=== PATIENT | female | born 1970 | race Caucasian/White ===

== ENCOUNTER 2020-05-19 10:15 | Outpatient (CLI) | payer MEDICAID, SELFPAY ==
--- NOTE | 2020-05-19 10:22 | XR_ITS ---
WS: [id number] RIGHT KNEE: 3 VIEW(S) TECHNIQUE: AP, oblique(s) and lateral. HISTORY: PAIN IN RIGHT KNEE COMPARISON: None available. No fracture or dislocation. Mild narrowing of the joint spaces and small marginal osteophytes. No osteochondral lesion. No joint effusion. No soft tissue abnormality. XR/XR knee RT 3V* [id number] IMPRESSION: Mild tricompartment osteoarthritis.
== END 2020-05-19 10:16 | disposition home or self-care (01) ==
LOC: RADWPI 10:18
PROVIDERS: Family Provider Family Medicine; PCP Family Medicine; Visit Provider Anesthesiology Pain Medicine
DX: M17.11 Unilateral primary osteoarthritis, right knee (principal)
CPT/HCPCS: 73562

== ENCOUNTER 2020-07-15 08:36 | Outpatient (CLI) | payer MEDICAID, SELFPAY ==
--- NOTE | 2020-07-15 08:47 | MM_ITS ---
WS: [id number] Bilateral screening digital mammogram, 07/15/2020 Clinical Data: SCREENING Comparison: 12/20/2017, 07/24/2007. Findings: The breast parenchymal pattern shows fat replacement. No spiculated masses or clustered calcification s are seen. There are no secondary signs of carcinoma. MM/[place] [id number] Impression: 1. Negative bilateral mammogram unchanged. 2. Recommend annual screening mammograms. BIRADS: 1-Negative FOLLOW UP: 1 Year Follow-up The CAD counter checker was used.
== END 2020-07-15 08:37 | disposition home or self-care (01) ==
LOC: RADSHAW 08:42
PROVIDERS: PCP Family Medicine; Visit Provider Family Medicine
DX: Z12.31 Encounter for screening mammogram for malignant neoplasm of breast (principal)
CPT/HCPCS: 77067

== ENCOUNTER → 2021-11-30 14:12 | Outpatient (BNVA) | payer MEDICAID, SELFPAY | PROVIDERS: PCP Family Medicine; Referring Provider Family Medicine; Visit Provider Obstetrics & Gynecology | DX: N95.0 Postmenopausal bleeding (principal) | CPT/HCPCS: 83001; 84146; 84443; 85027 ==

== ENCOUNTER → 2021-12-27 08:19 | Outpatient (BNVA) | payer MEDICAID, SELFPAY | PROVIDERS: PCP Family Medicine; Visit Provider Obstetrics & Gynecology | DX: Z01.818 Encounter for other preprocedural examination (principal); Z20.822 Contact with and (suspected) exposure to COVID-19; N95.0 Postmenopausal bleeding | CPT/HCPCS: 80053; 81000; 81025; 85025; 86850; 86900; 87635 ==

== ENCOUNTER → 2021-12-28 12:09 | Outpatient (BNVA) | payer MEDICAID, SELFPAY | PROVIDERS: PCP Family Medicine; Visit Provider Obstetrics & Gynecology | DX: Z01.818 Encounter for other preprocedural examination (principal); N95.0 Postmenopausal bleeding | CPT/HCPCS: 85025 ==

== ENCOUNTER 2021-12-29 08:32 | Day surgery (SDC) | payer MEDICAID, SELFPAY ==
[2021-12-27 12:09] VITALS: BMI 65.4
--- NOTE | 2021-12-27 16:12 | P.ANESASSM_ITS ---
Pre-Anesthetic Assessment Height/Weight: Height 1.65 m Weight 178.262 kg Preop Diagnosis: Post menopausal bleeding Operation Date: 12/29/21 07:10 Proposed Procedures p Hysteroscopy w/ Myosure 06513(Not Applicable) - George Rayo MD s Dilation And Curettage (D&C)(Not Applicable) - George Rayo MD Familial anesthetic complications: None Was Beta Mackenzie taken within 24 hours: N/A Was Clonidine taken within 24 hours: N/A Social No alcohol and No tobacco Exam alert, oriented x 3 and regular rate & rhythm Diminished breath sounds b/l Airway Submandibular: within normal limits Cervical ROM: within normal limits Mallampati: Class III Comments: Comments: missing teeth Pulmonary Exertional Dyspnea and Sleep Apnea (On CPAP) CV/HEM Hypertension METS = 4 due to SOB and pain Denies CAD None reported Hepatic None reported GI Gastroesophageal Reflux Disease (Well controlled ) Metabolic Morbid Obesity Denies DM Musc/skel Lower Back Pain and Osteoarthritis/DJD Neuropsych None reported Anesthetic Plan ASA status: 4 Anesthesia: Anesthesia Evaluation and General Other: We discussed risk and benefits of general anesthesia including PONV, sore throat (sometimes severe), corneal abrasion, positioning and peripheral nerve injuries, life threatening allergic reaction, post operative ICU admission requiring prolonged intubation, stroke, heart attack, , and rare incidences of recall. Patient consents to proceed with general anesthesia. Patient plans to bring CPAP on DOS. Risk of > 500 ml blood loss (7ml/kg in children): No Medications/Allergies Home Medications Medication Instructions Recorded Confirmed Last Taken Type citalopram 20 mg tablet 20 mg PO DAILY 10/02/20 12/27/21 Unknown History lisinopril 20 1 tab PO DAILY 10/02/20 12/27/21 Unknown History mg-hydrochlorothiazide 12.5 mg tablet loratadine 10 mg capsule 10 mg PO DAILY 10/02/20 12/27/21 Unknown History omeprazole 20 mg capsule,delayed 20 mg PO BID 10/02/20 12/27/21 Unknown History release prenat.vits,shweta,ozh-avgl-syjxf 1 tab PO DAILY 10/02/20 12/27/21 Unknown History tizanidine 4 mg capsule 4 mg PO BID 10/02/20 12/27/21 Unknown History pseudoephedrine-guaifenesin ER 60 1 tab PO BID 12/27/21 12/27/21 Unknown History mg-600 mg tablet,extend release 12hr (Mucinex D) Allergies Allergy/AdvReac Type Severity Reaction Status Date / Time No Known Allergies Allergy Verified 12/27/21 08:09 [facility] Anesthesia Family History Mother Clotting disorder Diabetes Heart disease Father Hypertension Grandmother Breast cancer paternal, age unknown Denies family history of Colon cancer Ovarian cancer Hyperlipidemia Anesthesia complication Bleeding disorder Uterine cancer Thyroid condition Stroke Social History Smoking and tobacco status: never smoked Alcohol intake: never Female Reproductive History Date of last menstrual period: 12/24/21 Data Anesthesia Cardiac Studies: No Data to Display
[2021-12-29] VITALS (8 sets, daily range): BP systolic 102–158; BP diastolic 55–80; PULSE 70–99; RESP 16–22; TEMP 36.4–37.1; O2SAT 94–100
--- NOTE | 2021-12-29 08:44 | W.PM.OPSUD ---
Surgery/Procedure H&P Update DATE OF PROCEDURE: December 29, 2021 DATE H&P PERFORMED: 12/27/21 H&P UPDATE INFORMATION: I have reviewed H&P completed within last 30 days, I have examined patient prior to procedure and No changes to prior documentation PREOP DIAGNOSIS: Postmenopausal bleeding PLANNED PROCEDURE: Operation Date: 12/29/21 10:10 Proposed Procedures p Hysteroscopy w/ Myosure 77105(Not Applicable) - George Rayo MD s Dilation And Curettage (D&C)(Not Applicable) - George Rayo MD
--- NOTE | 2021-12-29 08:49 | P.ANESUD_ITS ---
Pre-Anesthetic Update Pre-Anesthetic Assessment: Date of Surgery/Procedure: 12/29/21 Preop Prisca gnosis: Postmenopausal bleeding Proposed Procedure: Operation Date: 12/29/21 10:10 Proposed Procedures p Hysteroscopy w/ Myosure 43714(Not Applicable) - George Rayo MD s Dilation And Curettage (D&C)(Not Applicable) - George Rayo MD Any changes to Pre-Anesthetic Assessment?: No Vitals: Temperature 97.5 F L 12/29/21 08:44 Pulse Rate 82 12/29/21 08:44 Respiratory Rate 16 12/29/21 08:44 Blood Pressure 158/78 12/29/21 08:44 Blood Pressure Destini n 104 12/29/21 08:44 Pulse Oximetry 98 12/29/21 08:44 Oxygen Delivery Me thod 12/29/21 08:44 Exam: Pre-Anes Outpt Exam: alert, oriented x 3, clear to auscultation bilaterally and regular rate & rhythm Cardiac Studies: No Data to Display
[2021-12-29] MEDS: enoxaparin 30 mg/0.3 mL Syringe SUBCUT (09:38)
[2021-12-29] MEDS: sodium chloride 0.9% 500 ML IV (09:40)
[2021-12-29] MEDS: scopolamine 1.5 Patch 1 PATCH TRANSDERMA (09:41)
[2021-12-29] MEDS: sodium chloride 0.9% 1,000 ML 30 ML IV (09:49)
[2021-12-29] MEDS: ceFAZolin 1,000 mg SDV 1000 MG IVP (10:42)
--- NOTE | 2021-12-29 11:47 | SUR.PHASEI ---
1140 PT TO PACU 5 AWAKE ALERT X 3 VSS ABDOMEN SOFT, ABDIEL PAD D/I WITH MOD AMT DK RED DRAINAGE, BILAT SCDS ON. HOB AT 30 DEGREES, IV TO LT UPPER ARM #20 WITH NS 100M UP AT KVO RATE PER GRAVITY, ID BAND TO LT WRIST , PT ID'D WITH 2 IDENTIFIERS,
--- NOTE | 2021-12-29 11:49 | PM.OP ---
Operative Report Date of procedure: December 29, 2021 Pre-op diagnosis: Preop Diagnosis Postmenopausal bleeding Post-op diagnosis: Postmenopausal bleed Procedure done: Hysteroscopic and D&C with MyoSure Specimens removed/disposition: Endometrial curettings Surgeon: George Rayo MD Estimated blood loss (mL): 25 IV fluids (mL): 800 Brief History: Mrs. Bland 51-year-old female with postmenopausal bleeding. Procedure: After informed consent, the risks included but were not limited to bleeding, infection, injury to internal organs. The patient was counseled on a possible laparotomy and on the potential need for hysterectomy. The patient expressed understanding of the risks involved, all questions were answered, and the patient consented to the procedure. The patient was taken to the operating room where general anesthesia was administered. She was placed in the dorsal lithotomy position and prepped and draped in sterile fashion. A time out procedure was performed. The patient was examined under anesthesia and found to have a normal uterus with normal adnexa. A sterile weight speculum was placed in the vagina. The uterus was then gently sounded to 8 cm, and the cervix was dilated. The 0 degrees MyoSure hysteroscope was advanced gently to the uterine fundus while visualizing the monitor. Survey of the uterine cavity showed: Proliferative endometrium, the fundus shows normal proliferative endometrium; left ostium was visualized, and lateral wall with proliferative endometrium; right ostium visualized, and lateral wall with proliferative endometrium; anterior and posterior cool are with proliferative endometrium; endocervical canal is normal. The MyoSure device was advanced and the direct visualization the endometrium was morcellated without complication. At the end of morcellation the fluid deficit was 580 mL and was estimated at approximately 400 mL were on the floor. There was minimal bleeding noted and the tenaculum removed with goad hemostasis noted. The patient tolerated the procedure well. The patient was taken to the recovery area in stable condition. Related Problem List Diagnoses (1) Postmenopausal bleeding:
--- NOTE | 2021-12-29 17:42 | ANE.PACU2 ---
Inpatient post-anesthesia follow up: Airway intact: Yes Vital signs: Temperature 98.4 F Pulse Rate 70 Respiratory Rate 16 Blood Pressure 120/66 Pulse Oximetry 99 Oxygen Delivery Me thod Room Air Oxygen Flow Rate 8 Fraction of Inspir ed Oxygen Hydration adequate: Yes Nausea and vomiting: No Pain level: 5 Mental status: Baseline
== END 2021-12-29 12:50 | disposition home or self-care (01) ==
PROVIDERS: PCP Family Medicine; Visit Provider Obstetrics & Gynecology
PROC: 0UDB8ZZ Extraction of Endometrium, Via Natural or Artificial Opening Endoscopic (ICD-10-PCS; CPT 58558; principal; 2021-12-29 10:00)
PROC: (CPT 58120; 2021-12-29 10:00)
DX: N95.0 Postmenopausal bleeding (principal); G47.30 Sleep apnea, unspecified; I10 Essential (primary) hypertension; K21.9 Gastro-esophageal reflux disease without esophagitis; E66.01 Morbid (severe) obesity due to excess calories; Z68.44 Body mass index [BMI] 60.0-69.9, adult; M19.90 Unspecified osteoarthritis, unspecified site; Z82.49 Family history of ischemic heart disease and other diseases of the circulatory system; Z80.3 Family history of malignant neoplasm of breast
CPT/HCPCS: 58558; 88305; J0690; J1650; J2405; J2704; J2710; J3010; J3490; J7030; J7040

== ENCOUNTER 2022-01-11 13:53 | Outpatient (CLI) | payer MEDICAID, SELFPAY ==
--- NOTE | 2022-01-11 14:03 | MM_ITS ---
WS: [id number] BILATERAL 3D TOMOSYNTHESIS DIGITAL SCREENING MAMMOGRAPHY WITH CAD CLINICAL INFORMATION: SCREENING HISTORY: Screening mammogram. No current complaints. COMPARISON: July 15, 2020 TECHNIQUE: Bilateral CC and MLO views. FINDINGS: Scattered fibroglandular densities bilaterally. Incidental intramammary lymph nodes RIGHT breast with fatty pancho. No suspicious focal mass, asymmetry, calcifications, or architectural distortion. No solange dence of malignancy. MM/[place] [id number] IMPRESSION: BI-RADS: 2-Benign FOLLOW UP: 1 Year Follow-up Recommend return to annual screening mammography.
== END 2022-01-11 13:54 | disposition home or self-care (01) ==
LOC: RADSHAW 13:54
PROVIDERS: PCP Family Medicine; Visit Provider Family Medicine
DX: Z12.31 Encounter for screening mammogram for malignant neoplasm of breast (principal)
CPT/HCPCS: 77063; 77067

== ENCOUNTER → 2022-03-11 10:07 | Outpatient (BNVA) | payer MEDICAID, SELFPAY | PROVIDERS: PCP Family Medicine; Visit Provider Obstetrics & Gynecology | DX: N95.0 Postmenopausal bleeding (principal); G89.29 Other chronic pain; R10.2 Pelvic and perineal pain; Z01.812 Encounter for preprocedural laboratory examination | CPT/HCPCS: 80053; 81000; 85025; 86850; 86900 ==

== ENCOUNTER 2022-03-16 09:02 | Observation (INO) | payer MEDICAID, SELFPAY ==
[2022-03-11 11:14] VITALS: BMI 64.7
--- NOTE | 2022-03-11 12:39 | P.ANESASSM_ITS ---
Pre-Anesthetic Assessment Height/Weight: Height 1.65 m Weight 176.447 kg Preop Diagnosis: Postmenopausal bleeding Operation Date: 03/16/22 07:00 Proposed Procedures p Total vaginal hysterectomy, bilateral salpingo-oophorectomy 92126,N93.9,R10.2,G89.29(Not Applicable) - George Rayo MD s Salpingo-Oophorectomy (Vaginal)(Bilateral) - George Rayo MD Familial anesthetic complications: None Social No alcohol and No tobacco Exam alert, oriented x 3, clear to auscultation bilaterally and regular rate & rhythm Airway Mallampati: Class II Dentition: other (missing) Pulmonary Asthma CV/HEM Hypertension None reported Hepatic None reported GI Gastroesophageal Reflux Disease Metabolic Thyroid Disease Musc/skel Lower Back Pain Neuropsych None reported Anesthetic Plan ASA status: 3 Anesthesia: General Risk of > 500 ml blood loss (7ml/kg in children): No Medications/Allergies Home Medications Medication Instructions Recorded Confirmed Last Taken Type citalopram 20 mg tablet 20 mg PO DAILY 10/02/20 03/11/22 12/28/21 History lisinopril 20 1 tab PO DAILY 10/02/20 03/11/22 12/28/21 History mg-hydrochlorothiazide 12.5 mg tablet loratadine 10 mg capsule 10 mg PO DAILY 10/02/20 03/11/22 12/28/21 History omeprazole 20 mg capsule,delayed 20 mg PO BID 10/02/20 03/11/22 12/28/21 History release prenat.vits,shweta,rwp-jrmn-ouuqp 1 tab PO DAILY 10/02/20 03/11/22 12/28/21 History tizanidine 4 mg capsule 4 mg PO BID 10/02/20 03/11/22 12/28/21 History pseudoephedrine-guaifenesin ER 60 1 tab PO BID 12/27/21 03/11/22 12/28/21 History mg-600 mg tablet,extend release 12hr (Mucinex D) acetaminophen 325 mg capsule 325 mg PO Q4H PRN #60 cap 12/29/21 03/11/22 Unknown Rx ibuprofen 800 mg tablet 800 mg PO TID PRN #60 tab 12/29/21 03/11/22 Unknown Rx hydrocodone 7.5 mg-acetaminophen 1 tab PO BID PRN 03/11/22 03/11/22 Unknown History 325 mg tablet Allergies Allergy/AdvReac Type Severity Reaction Status Date / Time shrimp Allergy Intermediate ALGY-Rash Verified 03/11/22 09:38 [facility] Anesthesia Medical History Aftercare following surgery of the genitourinary system Status post hysteroscopy 12/29/2021- hysteroscopic D&C with myosure performed by Dr. Rayo at [facility] Surgical History H/O dilation and curettage H/O tubal ligation S/P cholecystectomy Family History Mother Clotting disorder Diabetes Heart disease Father Hypertension Grandmother Breast cancer paternal, age unknown Denies family history of Colon cancer Ovarian cancer Hyperlipidemia Anesthesia complication Bleeding disorder Uterine cancer Thyroid condition Stroke Social History Smoking and tobacco status: never smoked Alcohol intake: never Female Reproductive History Date of last menstrual period: 12/24/21 Data Anesthesia Cardiac Studies: No Data to Display
[2022-03-16] VITALS (15 sets, daily range): BP systolic 90–129; BP diastolic 53–80; PULSE 72–85; RESP 12–19; TEMP 36.2–37.1; O2SAT 90–100; BMI 64.7
[2022-03-16] MEDS: scopolamine 1.5 Patch 1 PATCH TRANSDERMA (06:26)
[2022-03-16] MEDS: sodium chloride 0.9% 500 ML IV (06:30)
[2022-03-16] MEDS: enoxaparin 30 mg/0.3 mL Syringe SUBCUT (06:49)
--- NOTE | 2022-03-16 06:54 | W.PM.OPSUD ---
Surgery/Procedure H&P Update DATE OF PROCEDURE: March 16, 2022 DATE H&P PERFORMED: 03/11/22 H&P UPDATE INFORMATION: I have reviewed H&P completed within last 30 days, I have examined patient prior to procedure and No changes to prior documentation PREOP DIAGNOSIS: Postmenopausal bleeding PLANNED PROCEDURE: Operation Date: 03/16/22 07:00 Proposed Procedures p Total vaginal hysterectomy, bilateral salpingo-oophorectomy 07962,N93.9,R10.2,G89.29(Not Applicable) - George Rayo MD s Salpingo-Oophorectomy (Vaginal)(Bilateral) - George Rayo MD
[2022-03-16] MEDS: ceFOXitin 2,000 MG in sodium chloride 0.9% (plus) 50 ML 100 MG IV (07:00)
--- NOTE | 2022-03-16 07:48 | P.ANESUD_ITS ---
Pre-Anesthetic Update Pre-Anesthetic Assessment: Date of Surgery/Procedure: 03/16/22 Preop Prisca gnosis: Postmenopausal bleeding Proposed Procedure: Operation Date: 03/16/22 07:00 Proposed Procedures p Total vaginal hysterectomy, bilateral salpingo-oophorectomy 48040,N93.9,R10.2,G89.29(Not Applicable) - George Rayo MD s Salpingo-Oophorectomy (Vaginal)(Bilateral) - George Rayo MD Any changes to Pre-Anesthetic Assessment?: No Last Intake: Intake Last Liquid Date 03/15/22 Last Liquid Time 20:00 Last Solid Date 03/15/22 Last Solid Time 20:00 Vitals: Temperature 98.7 F 03/16/22 06:06 Temperature Source Temporal Artery S can 03/16/22 06:06 Pulse Rate 73 03/16/22 06:06 Respiratory Rate 18 03/16/22 06:06 Blood Pressure 129/63 03/16/22 06:06 Blood Pressure Destini n 85 03/16/22 06:06 Pulse Oximetry 98 03/16/22 06:06 Oxygen Delivery Me thod 03/16/22 06:38 Exam: Pre-Anes Outpt Exam: alert, oriented x 3, clear to auscultation bilaterally and regular rate & rhythm Cardiac Studies: No Data to Display
--- NOTE | 2022-03-16 08:58 | PM.OP ---
Operative Report Date of procedure: March 16, 2022 Pre-op diagnosis: Preop Diagnosis Postmenopausal bleeding Post-op diagnosis: Postmenopausal bleed Procedure done: Total vaginal hysterectomy with bilateral salpingo-oophorectomy Surgeon: George Rayo MD Estimated blood loss (mL): 400 IV fluids (mL): 700 Urine output (mL): 100 Complications: None Procedure: After informed consent and risks, benefits, indications and alternatives reviewed with the patient was taken to the operating room. The patient was placed in dorsal lithotomy position prepped, and draped in the usual sterile fashion. The pre-procedure timeout verifying the correct patient, procedure, site and side, could not requirements was performed and acknowledge by the OR team. A Chong catheter was placed. A Bookwalter vaginal retractor was placed into the vagina in usual manner visualize the cervix. Cervix was grasped with a single tooth tenaculum and circumferentially infiltrated with 2% lidocaine with epinephrine. Then cervix was circumferentially incised with bovie and the bladder was dissected off the pubovesical cervical fascia anteriorly with a sponge stick and Metzenbaum scissors. The anterior peritoneal reflection was identified and the anterior cul-de-sac was entered sharply with Metzenbaum scissors. The same procedure was performed posteriorly and a posterior colpotomy was made through the posterior cul-de-sac space without difficulty and the posterior blade of the Bookwalter vaginal retractor was advanced posteriorly into the cul-de-sac. At this time, the left and right uterosacral ligaments were isolated and ligated with 0 Vicryl. The Enseal device was placed over the uterosacral ligaments on either side and was then used in a serial fashion up through the cardinal ligaments bilaterally cross-clamped, cut, and sealed with the Enseal device. Finally, the uterine arteries were cross-clamped, cut, sealed and ligated with the Enseal device. Hemostasis was assured. The broad ligaments were then serially clamped, sealed and cut with the Enseal device on both sides. Excellent hemostasis was visualized. Both cornua were clamped, sealed and cut with the Enseal device. Then the pedicles were then suture ligated with excellent hemostasis. The uterus was excised and submitted for pathologic evaluation. No other abnormalities were noted in the pelvic cavity. Then the right side Infundibular ligament was identified. The ureter was confirmed along the pelvic side wall and peristalsis was noted. The Enseal device was then used to clamp, sealed and transcepted at middistance, again being sure to be clear of the ureter and the fallopian tube and ovary were removed. The same process was then repeated on the left side. Good hemostasis was assure on both sides. The peritoneum was then closed in a pursestring fashion with 0 Vicryl suture. The vaginal cuff angles were closed with [id number] #0 Vicryl suture on both sides and transfixed with the ipsilateral cardinal and uterosacral ligaments. The remainder of the vaginal cuff was closed with #0 Vicryl in a running locked fashion. At this time, instruments were removed from the vagina at hemostasis assured. Chong catheter was then noted yielding clear harish urine. The patient was taken out of dorsal lithotomy position and awakened from the general anesthesia. The patient tolerated the procedure well and was taken to the PACU recovery room in a stable condition. Sponge, lap, needle and instruments counts were correct x3.
[2022-03-16] MEDS: sodium chloride 0.9% 1,000 ML 30 ML IV (10:42)
[2022-03-16] MEDS: ketorolac 30 mg/mL INJ IVP ×2 (14:39→20:13)
--- NOTE | 2022-03-16 16:34 | ANE.PACU2 ---
Inpatient post-anesthesia follow up: Airway intact: Yes Vital signs: Temperature 97.5 F Pulse Rate 78 Respiratory Rate 18 Blood Pressure 103/66 Pulse Oximetry 96 Oxygen Delivery Me thod Room Air Oxygen Flow Rate 6 Fraction of Inspir ed Oxygen Hydration adequate: Yes Nausea and vomiting: No Pain level: 3 Mental status: Baseline
[2022-03-16] MEDS: docusate sodium 100 mg Capsule PO (17:45)
[2022-03-16] MEDS: HYDROcodone-acetaminophen 5-325 mg Tablet PO (17:46)
[2022-03-16] MEDS: pantoprazole DR 40 mg Tablet PO (18:16)
[2022-03-16] MEDS: dextrose 5%-lactated ringers 1,000 ML 125 ML IV (18:16)
[2022-03-17] MEDS: ketorolac 30 mg/mL INJ IVP (01:53)
[2022-03-17] MEDS: dextrose 5%-lactated ringers 1,000 ML 125 ML IV (01:56)
[2022-03-17 05:30] VITALS: BP 119/69; PULSE 70; RESP 18; TEMP 36.6; O2SAT 98
[2022-03-17 06:27] LABS: Hematocrit 34.2 % (37.0-47.0); Hemoglobin 11.1 g/dL (11.5-15.3); Mean Corpuscular HGB Conc 32.5 g/dL (30.0-36.0); Mean Corpuscular Hemoglobin 28.8 pg (28.0-34.0); Mean Corpuscular Volume 88.6 fl (81-99); Mean Platelet Volume 11.6 fL (7.4-10.4); Platelet Count 154 10^3/cmm (130-400); Red Blood Count 3.86 10^6/uL (4.1-5.3); Red Cell Distribution Width 13.6 % (12.1-15.1)
[2022-03-17 07:50] VITALS: BP 87/39; PULSE 73; RESP 20; TEMP 36.4; O2SAT 98
[2022-03-17] MEDS: prenatal vitamin Capsule 1 CAP PO (08:16)
[2022-03-17] MEDS: docusate sodium 100 mg Capsule PO (08:16)
[2022-03-17] MEDS: hydroCHLOROthiazide 25 mg Tablet 12.5 MG PO (08:16)
[2022-03-17] MEDS: lisinopril 20 mg Tablet PO (08:17)
[2022-03-17] MEDS: pantoprazole DR 40 mg Tablet PO (08:17)
[2022-03-17] MEDS: HYDROcodone-acetaminophen 5-325 mg Tablet PO (08:17)
[2022-03-17] MEDS: citalopram 20 mg Tablet PO (08:18)
[2022-03-17] MEDS: loratadine 10 mg Tablet PO (08:18)
--- NOTE | 2022-03-17 09:34 | P.DS_ITS ---
Discharge Providers ELECTRICAL CONTACTS ADJUSTER Date of Admission: 03/16/22 09:02 Date of Discharge: 03/17/22 Attending Provider at Admission: George Rayo MD Attending Provider at Discharge: George Rayo MD Primary Care Provider: Chavez Truong MD Reason for Visit Reason for Visit: Brief History: Mrs. Randhawa 51-year-old female with postmenopausal bleeding endometrial sampling with complex hyperplasia with atypia. Hospital Course Hospital Course Mrs. Randhawa was admitted for planned total vaginal hysterectomy with bilateral salpingo-oophorectomy. The procedures were performed without complications. Postop overnight observation uneventful. She is afebrile hemodynamically stable postoperative day 1. Tolerating diet well. Ambulating. Passing flatus. Physical Exam Narrative: GA: Alert and oriented ?3. HEENT: WNL. Heart: Regular rate and rhythm. Lungs: Clear to auscultation bilaterally. Abdomen: Bowel sounds present, nontender. ICT SALES REPRESENTATIVE: Scant spotting bleeding. Extremities: No edema, no cyanosis, no calves pain. Urinary Catheter Management: Chong: Cath Placed During This Visit: yes, but has since been removed by the nurse Reason for Continuing Indwelling Catheter: Decision to DC Catheter Urinary Catheter Date of Insertion: 03/16/22 Urinary Catheter Time of Insertion: 07:40 Date Urinary Catheter Removed: 03/17/22 Time Urinary Catheter Discontinued: 05:30 History History History 2 Term 2 Miscarriages/Ectopic 0 0 Living Children 1 Discharge Data Studies Completed and Pending Pending at discharge Category Date Time Status Pathology: Surgical [PTH] Routine Pth 03/16/22 09:13 Received Laboratory Results WBC 12.0 10^3/uL (4.0-10.0) H 03/17/22 06:21 RBC 3.86 10^6/uL (4.1-5.3) L 03/17/22 06:21 Hgb 11.1 g/dL (11.5-15.3) L 03/17/22 06:21 Hct 34.2 % (37.0-47.0) L 03/17/22 06:21 MCV 88.6 fl (81-99) 03/17/22 06:21 MCH 28.8 pg (28.0-34.0) 03/17/22 06:21 MCHC 32.5 g/dL (30.0-36.0) 03/17/22 06:21 RDW 13.6 % (12.1-15.1) 03/17/22 06:21 Plt Count 154 10^3/cmm (130-400) 03/17/22 06:21 MPV 11.6 fL (7.4-10.4) H 03/17/22 06:21 Vitals Last Vital Signs Temp 97.9 F 03/17/22 05:30 Pulse 70 03/17/22 05:30 Resp 18 03/17/22 05:30 BP 119/69 03/17/22 05:30 Pulse Ox 98 03/17/22 05:30 Discharge Plan Discharge Patient Disposition: Home Condition: Stable Prescriptions: New hydrocodone-acetaminophen 5-325 mg tablet 1 tab PO Q4H PRN (Reason: pain) Qty: 20 0RF ibuprofen 800 mg tablet 800 mg PO TID PRN (Reason: pain) Qty: 60 0RF acetaminophen 325 mg capsule 325 mg PO Q4H PRN (Reason: fever or pain) Qty: 60 0RF Continued lisinopril-hydrochlorothiazide 20-12.5 mg tablet 1 tab PO DAILY 0RF citalopram 20 mg tablet 20 mg PO DAILY 0RF omeprazole 20 mg capsule,delayed release(DR/EC) 20 mg PO BID 0RF loratadine 10 mg capsule 10 mg PO DAILY 0RF prenat.vits,shweta,iiy-wbag-jzcku Tablet 1 tab PO DAILY 0RF tizanidine 4 mg capsule 4 mg PO BID 0RF hydrocodone-acetaminophen 7.5-325 mg tablet 1 tab PO BID PRN (Reason: muscle spasms) 0RF pseudoephedrine-guaifenesin [Mucinex D] 60-600 mg Tablet Extended Release 12 Hr 1 tab PO BID 0RF ibuprofen 800 mg tablet 800 mg PO TID PRN (Reason: pain) Qty: 60 0RF acetaminophen 325 mg capsule 325 mg PO Q4H PRN (Reason: fever or pain) Qty: 60 0RF Discharge Orders: Discharge Order (Routine); Ordered 03/17/22 Ordered By: George Rayo Referrals: George Rayo MD [Physician] - 2 weeks Discharge Diet: Usual diet Discharge Activity: Limit activity as instructed Patient Instructions: Salpingo-Oophorectomy (GEN), Vaginal Hysterectomy (GEN), OB Discharge Report, OB Food/Drug Interaction Guide, Opioid Safety Activity Restrictions/Additional Instructions: 1. Please call [facility] on next working day to make your post-operative appointment in 2 weeks. 2. Please stay home until you come back to the clinic on first post-operative check up. 3. Please follow instructions on your medications CAREFULLY. 4. If you have abdominal incision, do not cover it unless dressing is necessary because of drainage. OK to shower, but avoid bath. Leave steri-strips until they fall off. If they are still on one week after surgery, you may remove them. 5. If you had vaginal surgery or vaginal repair, Dr. Rayo may instruct you to take SITZ bath. 6. Yellow, blood tinged odorous vaginal discharge is usually normal after hysterectomy or vaginal surgeries. 7. No sexual intercourse, tampons, or douches until you are completely released from the post-operative care. 8. Avoid constipation by eating right and maybe using some Metamucil or Milk of Magnesia. 9. All prescription refills are given during the working hours. Please do no wait till it runs out. Call the clinic at [phone] before your medication runs out. The clinic will get in touch with your doctor to prescribe medications if necessary. 10. Please remain within 40 mile radius from our hospital because emergencies do happen now and then during the post-operative period. 11. If you have stairs at home, take one step at a time slowly and minimize the number of trips. It helps to stay in one floor for the next few days. No lifting except what you can lift by one hand until you are released from the post-operative care. 12. Driving is discouraged until you are well healed. It may be 3-4 weeks before you feel strong enough to drive. You should be able to turn and look th rough the rear window without pain and you should be able to push the brake pedal very hard without pain before you drive. No fast rules, but SAFETY should be your primary concern. DO NOT drive if you are on sedating medications such as narcotics. 13. Call the clinic (during working hours) to make urgent appointment or go to the Emergency room, if any of the following occurs: i. Vaginal bleeding becomes heavy, more than a period. ii. Incision becomes red and sore, or drains pus. iii. Your temperature is over 100.4 or you have chill. iv. IV site becomes red and swollen (a little ``knot?? is usually OK) v. Persistent nausea and vomiting vi. Persistent constipation or diarrhea vii. Rash or allergic reaction to medications. Discharge Attestations ELECTRICAL CONTACTS ADJUSTER Time Spent in Discharge Care*: greater than 30 min Coding Level of Care Code Acute Residential Housekeeper for Mary Hunter
[2022-03-17 10:15] VITALS: BP 108/66; PULSE 70; RESP 18; TEMP 36.8; O2SAT 98
[2022-03-17 11:29] VITALS: BP 108/66; PULSE 70; RESP 18; TEMP 36.8; O2SAT 98
== END 2022-03-17 10:30 | disposition home or self-care (01) ==
LOC: OBGYN 09:05
PROVIDERS: Admitting Provider Obstetrics & Gynecology; PCP Family Medicine; Visit Provider Obstetrics & Gynecology
PROC: (CPT 58262; principal; 2022-03-16 07:00)
PROC: (CPT 58720; 2022-03-16 07:00)
DX: N95.0 Postmenopausal bleeding (principal); I10 Essential (primary) hypertension
CPT/HCPCS: 58262; 36415; 85027; 88307; G0378; J0330; J0694; J1100; J1200; J1650; J1885; J2250; J2270; J2370; J2405; J2704; J2710; J3010; J3490; J7030; J7040; Q9968

== ENCOUNTER → 2022-04-15 10:09 | Outpatient (BNVA) | payer MEDICAID, SELFPAY | PROVIDERS: PCP Family Medicine; Visit Provider Obstetrics & Gynecology | DX: R39.9 Unspecified symptoms and signs involving the genitourinary system (principal) | CPT/HCPCS: 81000; 87086 ==

== ENCOUNTER → 2022-04-26 10:15 | Outpatient (BNVA) | payer MEDICAID, SELFPAY | PROVIDERS: PCP Family Medicine; Visit Provider Obstetrics & Gynecology | DX: E89.40 Asymptomatic postprocedural ovarian failure (principal) | CPT/HCPCS: 83001 ==

== ENCOUNTER → 2022-06-06 10:35 | Outpatient (BNVA) | payer MEDICAID, SELFPAY | PROVIDERS: PCP Family Medicine; Visit Provider Obstetrics & Gynecology | DX: E66.9 Obesity, unspecified (principal) | CPT/HCPCS: 84443 ==

== ENCOUNTER 2023-01-20 08:00 | Outpatient (CLI) | payer MEDICAID, SELFPAY ==
--- NOTE | 2023-01-20 08:11 | MM_ITS ---
WS: [id number] Bilateral screening 3D tomosynthesis digital mammogram, 01/20/2023 Clinical Data: SCREENING Comparison: 01/11/2022, 07/15/2020, 12/20/2017, 07/28/2007. Findings: The breast parenchymal pattern shows fat replacement. No spiculated masses or clustered calcification s are seen. There are no secondary signs of carcinoma. MM/[place] [id number] Impression: 1. Negative bilateral mammogram unchanged. 2. Recommend annual screening mammograms. BIRADS: 1-Negative FOLLOW UP: 1 Year Follow-up The CAD bad cloth checker was used.
== END 2023-01-20 08:01 | disposition home or self-care (01) ==
PROVIDERS: PCP Family Medicine; Visit Provider Family Medicine
DX: Z12.31 Encounter for screening mammogram for malignant neoplasm of breast (principal)
CPT/HCPCS: 77063; 77067

== ENCOUNTER → 2023-07-13 07:37 | Outpatient (BNVA) | payer MEDICAID, SELFPAY | PROVIDERS: PCP Family Medicine; Referring Provider Obstetrics & Gynecology; Visit Provider Surgery | DX: R14.0 Abdominal distension (gaseous) (principal); K21.9 Gastro-esophageal reflux disease without esophagitis | CPT/HCPCS: 99203 ==

== ENCOUNTER 2023-08-16 06:48 | Day surgery (SDC) | payer MEDICAID, SELFPAY ==
[2023-08-16 07:09] VITALS: BP 145/67; PULSE 79; RESP 18; TEMP 36.6; O2SAT 93; BMI 64.9
[2023-08-16] MEDS: sodium chloride 0.9% 1,000 ML 30 ML IV (07:20)
--- NOTE | 2023-08-16 07:36 | ANES.PREANE2 ---
Pre-Anesthetic Assessment Height/Weight: Height 1.65 m Weight 176.901 kg Temp Pulse Resp BP Pulse Ox O2 Del Method 97.8 F 79 18 145/67 93 Room Air 08/16/23 07:09 08/16/23 07:09 08/16/23 07:09 08/16/23 07:09 08/16/23 07:09 08/16/23 07:09 Preop Diagnosis: Bloating/GERD Operation Date: 08/16/23 08:00 Proposed Procedures p EGD 92907,K21.9,R14.0(Not Applicable) - Tobi Calderon DO Familial anesthetic complications: None Was Beta Mackenzie taken within 24 hours: N/A Was Clonidine taken within 24 hours: N/A Last intake: Intake Last Liquid Date 08/15/23 Last Liquid Time 20:00 Last Solid Date 08/15/23 Last Solid Time 18:00 Social No alcohol and No tobacco Exam alert, oriented x 3, clear to auscultation bilaterally and regular rate & rhythm Airway Submandibular: within normal limits Cervical ROM: within normal limits Mallampati: Class II Dentition: full Comments: Comments: 5 teeth pulled 1.5 months ago History/ROS No significant history except as noted and No significant complaints Pulmonary Asthma, Exertional Dyspnea and Sleep Apnea (Doesn't wear CPAP) CV/HEM Hypertension None reported Hepatic None reported GI Gastroesophageal Reflux Disease Metabolic Morbid Obesity Musc/skel Lower Back Pain, Osteoarthritis/DJD and Weakness Neuropsych Anxiety, Depression, Headache and Neuropathy Anesthetic Plan ASA status: 3 Anesthesia: Anesthesia Evaluation, General and MAC Risk of > 500 ml blood loss (7ml/kg in children): No Medications/Allergies Home Medications Medication Instructions Recorded Confirmed Last Taken Type lisinopril 20 1 tab PO DAILY 10/02/20 08/14/23 08/15/23 History mg-hydrochlorothiazide 12.5 mg tablet loratadine 10 mg capsule 10 mg PO DAILY 10/02/20 08/14/23 08/15/23 History montelukast 10 mg tablet 10 mg PO DAILY 06/06/22 08/14/23 08/15/23 History (Singulair) citalopram 40 mg tablet 40 mg PO DAILY 05/28/23 08/14/23 08/15/23 History vitamin with calcium 1 tab PO DAILY 05/28/23 08/14/23 08/15/23 History no.72-iron 27 mg-folic acid 1 mg tablet ( Vitamins Plus Low Iron) estradiol 0.5 mg tablet See Rx Instructions .Route 06/12/23 08/14/23 08/15/23 Rx .COMPLEX #90 tabs oxybutynin chloride 5 mg See Rx Instructions .Route 06/12/23 08/14/23 08/15/23 Rx tablet,extended release 24 hr .COMPLEX #90 tabs pantoprazole 40 mg tablet,delayed 40 mg PO BID 6 weeks #84 tabs 07/13/23 08/14/23 08/15/23 Rx release (Protonix) Allergies Allergy/AdvReac Type Severity Reaction Status Date / Time shrimp Allergy Intermediate ALGY-Rash Verified 07/13/23 07:44 Current Medications Generic Name Dose Route Start Last Admin Trade Name Freq PRN Reason Stop Dose Admin Sodium Chloride 1,000 mls @ 30 mls/hr 08/16/23 07:15 08/16/23 07:20 Sodium Chloride 0.9% IV 08/17/23 07:14 30 mls/hr .Q24H JACOB Administration [facility] Anesthesia Medical History (Updated 07/13/23 @ 09:30 by Tobi Calderon DO) Dental caries URI with cough and congestion Allergic rhinitis Aftercare following surgery of the genitourinary system Status post hysteroscopy 12/29/2021- hysteroscopic D&C with myosure performed by Dr. Rayo at [facility] Aftercare following surgery of the genitourinary system Surgical History (Updated 07/13/23 @ 09:30 by Tobi Calderon DO) Hx of colonoscopy Dr Perez- unknown when done H/O total vaginal hysterectomy 03/16/2022- TVH with BSO performed by Dr. Rayo at [facility] H/O tubal ligation S/P cholecystectomy H/O dilation and curettage Family History Mother Clotting disorder Diabetes Heart disease Father Hypertension Grandmother Breast cancer paternal, age unknown Denies family history of Colon cancer Ovarian cancer Hyperlipidemia Anesthesia complication Bleeding disorder Uterine cancer Thyroid disease Stroke Social History Smoking and tobacco/nicotine status: never used tobacco/nicotine Substance/Drug Use: never Data Anesthesia Cardiac Studies: No Data to Display
--- NOTE | 2023-08-16 08:37 | PM.HP ---
Providers/Chief Complaint Primary Care Provider: Chavez Truong MD Chief Complaint: K21.9, R14.0 History of Present Illness Yessica Randhawa is a 52 year old female Review of Systems General: Reports: 10 or more systems reviewed and unremarkable except in HPI and below Medications/Allergies Home Medications Medication Instructions Recorded Confirmed Last Taken Type lisinopril 20 1 tab PO DAILY 10/02/20 08/14/23 08/15/23 History mg-hydrochlorothiazide 12.5 mg tablet loratadine 10 mg capsule 10 mg PO DAILY 10/02/20 08/14/23 08/15/23 History montelukast 10 mg tablet 10 mg PO DAILY 06/06/22 08/14/23 08/15/23 History (Singulair) citalopram 40 mg tablet 40 mg PO DAILY 05/28/23 08/14/23 08/15/23 History vitamin with calcium 1 tab PO DAILY 05/28/23 08/14/23 08/15/23 History no.72-iron 27 mg-folic acid 1 mg tablet ( Vitamins Plus Low Iron) estradiol 0.5 mg tablet See Rx Instructions .Route 06/12/23 08/14/23 08/15/23 Rx .COMPLEX #90 tabs oxybutynin chloride 5 mg See Rx Instructions .Route 06/12/23 08/14/23 08/15/23 Rx tablet,extended release 24 hr .COMPLEX #90 tabs pantoprazole 40 mg tablet,delayed 40 mg PO BID 6 weeks #84 tabs 07/13/23 08/14/23 08/15/23 Rx release (Protonix) Allergies Allergy/AdvReac Type Severity Reaction Status Date / Time shrimp Allergy Intermediate ALGY-Rash Verified 07/13/23 07:44 PFSH Acute PFSH: Medical History (Updated 07/13/23 @ 09:30 by Tobi Calderon DO) Dental caries URI with cough and congestion Allergic rhinitis Aftercare following surgery of the genitourinary system Status post hysteroscopy 12/29/2021- hysteroscopic D&C with myosure performed by Dr. Rayo at [facility] Aftercare following surgery of the genitourinary system Surgical History (Updated 07/13/23 @ 09:30 by Tobi Calderon DO) Hx of colonoscopy Dr Perez- unknown when done H/O total vaginal hysterectomy 03/16/2022- TVH with BSO performed by Dr. Rayo at [facility] H/O tubal ligation S/P cholecystectomy H/O dilation and curettage Family History Mother Clotting disorder Diabetes Heart disease Father Hypertension Grandmother Breast cancer paternal, age unknown Denies family history of Colon cancer Ovarian cancer Hyperlipidemia Anesthesia complication Bleeding disorder Uterine cancer Thyroid disease Stroke Social History Smoking and tobacco/nicotine status: never used tobacco/nicotine Substance/Drug Use: never Vitals/I&O/Wt Last Vital Signs Temp 97.8 F 08/16/23 07:09 Pulse 79 08/16/23 07:09 Resp 18 08/16/23 07:09 BP 145/67 08/16/23 07:09 Pulse Ox 93 08/16/23 07:09 O2 Del Method Room Air 08/16/23 07:09 Weight last 48 hrs Weight 390 lb A&P Assessment and plan (1) GERD (gastroesophageal reflux disease): Plan EGD Attestations Medical Necessity Statement*: home Coding Level of Care Code Acute Code for Chg Fwd Diagnoses GERD (gastroesophageal reflux disease) K21.9
[2023-08-16 08:55] VITALS: BP 112/60; PULSE 75; RESP 20; TEMP 36.6; O2SAT 98
[2023-08-16 09:04] VITALS: BP 102/50; PULSE 65; RESP 18; O2SAT 100
--- NOTE | 2023-08-16 15:53 | ANE.PACU2 ---
Inpatient post-anesthesia follow up: Airway intact: Yes Vital signs: Temperature 97.9 F Pulse Rate 65 Respiratory Rate 18 Blood Pressure 102/50 Pulse Oximetry 100 Oxygen Delivery Me thod Room Air Oxygen Flow Rate Fraction of Inspir ed Oxygen Hydration adequate: Yes Nausea and vomiting: No Pain level: 2 Mental status: Baseline
== END 2023-08-16 09:17 | disposition home or self-care (01) ==
PROVIDERS: PCP Family Medicine; Visit Provider Surgery
PROC: 0DJ08ZZ Inspection of Upper Intestinal Tract, Via Natural or Artificial Opening Endoscopic (ICD-10-PCS; CPT 43235; principal; 2023-08-16 08:00)
DX: K21.9 Gastro-esophageal reflux disease without esophagitis (principal); K29.50 Unspecified chronic gastritis without bleeding; I10 Essential (primary) hypertension; E66.01 Morbid (severe) obesity due to excess calories; Z68.44 Body mass index [BMI] 60.0-69.9, adult
CPT/HCPCS: 43239; 88305; 88342; J2704; J7030

== ENCOUNTER → 2023-09-20 13:30 | Outpatient (BNVA) | payer MEDICAID, SELFPAY | PROVIDERS: PCP Family Medicine; Visit Provider Surgery | DX: Z09 Encounter for follow-up examination after completed treatment for conditions other than malignant neoplasm (principal) | CPT/HCPCS: 99213 ==

== ENCOUNTER 2024-01-24 07:14 | Outpatient (CLI) | payer MEDICAID, SELFPAY ==
--- NOTE | 2024-01-24 07:23 | MM_ITS ---
WS: [id number] BILATERAL SCREENING DIGITAL TOMOSYNTHESIS MAMMOGRAM WITH CAD HISTORY: SCREENING COMPARISON: 01/20/2023 and 01/11/2022 Bilateral CC and MLO views with tomosynthesis and synthetic mammography submitted. Computer aided det ection analyzed. Breast composition: There are scattered areas of fibroglandular density. No suspicious masses, microc alcifications or architectural distortion. Benign lymph node central RIGHT breast. MM/[place] [id number] IMPRESSION: BI-RADS: 2-Benign FOLLOW UP: 1 Year Follow-up
== END 2024-01-24 07:15 | disposition home or self-care (01) ==
LOC: RAD 07:14
PROVIDERS: PCP Family Medicine; Visit Provider Family Medicine
DX: Z12.31 Encounter for screening mammogram for malignant neoplasm of breast (principal)
CPT/HCPCS: 77063; 77067

== ENCOUNTER → 2024-04-17 10:11 | Outpatient (BNVA) | payer BC, MEDICAID, SELFPAY | PROVIDERS: PCP Family Medicine; Visit Provider Internal Medicine | DX: R63.5 Abnormal weight gain (principal); E66.01 Morbid (severe) obesity due to excess calories; K21.9 Gastro-esophageal reflux disease without esophagitis | CPT/HCPCS: 36415; 83036; 84305; 84439; 84443 ==

== ENCOUNTER 2024-04-19 08:32 | Outpatient (CLI) | payer MEDICAID, SELFPAY ==
[2024-04-19 09:13] LABS: Total Volume Urine 3500 ml
[2024-04-19 09:20] LABS: Urine Creatinine 51 mg/dL (28-217)
[2024-04-26 13:00] LABS: Free Cortisol Urine 30.5 mcg/24 h (4.0-50.0); Total Urine 3500 mL
== END 2024-04-19 08:33 | disposition home or self-care (01) ==
LOC: LAB 08:35
PROVIDERS: PCP Family Medicine; Visit Provider Internal Medicine
DX: R63.5 Abnormal weight gain (principal); K21.9 Gastro-esophageal reflux disease without esophagitis
CPT/HCPCS: 82530; 82570

== ENCOUNTER → 2024-05-06 11:28 | Outpatient (BNVA) | payer MEDICAID, SELFPAY | PROVIDERS: PCP Family Medicine; Visit Provider Internal Medicine | DX: E66.01 Morbid (severe) obesity due to excess calories (principal); R79.89 Other specified abnormal findings of blood chemistry; Z68.44 Body mass index [BMI] 60.0-69.9, adult; Z79.4 Long term (current) use of insulin; Z79.84 Long term (current) use of oral hypoglycemic drugs | CPT/HCPCS: 99214 ==

== ENCOUNTER 2024-07-31 10:45 | Outpatient (CLI) | payer MEDICAID, SELFPAY ==
[2024-07-31 13:46] LABS: Bilirubin Urine 1+ (Negative); Blood Urine 3+ (Negative); Glucose Urine UA Negative (Normal); Ketones Urine Trace (Negative); Leukocyte Esterase Urine 2+ (Negative); Nitrate Urine Negative (Negative); Protein Urine 2+ (Negative); Specific Gravity, Urine 1.029 (1.005-1.030); Urine Appearance Cloudy (CLEAR); Urine Color Dark Yellow (Yellow)
[2024-07-31 13:49] LABS: Add Urine Microscopic? YES; Bacteria Urine Trace /hpf; RBC Urine >100 /hpf (0-2); Squamous Epithelial Cell Urine 0-5 /hpf (0-5); WBC Urine >100 /hpf (0-5)
[2024-07-31 13:57] LABS: Add Urine Culture? Yes
== END 2024-07-31 10:46 | disposition home or self-care (01) ==
LOC: LAB 10:47
PROVIDERS: PCP Family Medicine; Visit Provider Internal Medicine
DX: E66.01 Morbid (severe) obesity due to excess calories (principal); N39.0 Urinary tract infection, site not specified; K21.9 Gastro-esophageal reflux disease without esophagitis; M25.569 Pain in unspecified knee; R79.89 Other specified abnormal findings of blood chemistry; K59.00 Constipation, unspecified; Z79.85 Long-term (current) use of injectable non-insulin antidiabetic drugs
CPT/HCPCS: 36415; 81001; 84305; 87077; 87086; 87186; 99214

== ENCOUNTER 2024-09-16 03:30 | Emergency (ER) | payer MEDICAID, SELFPAY ==
[2024-09-16] VITALS (15 sets, daily range): BP systolic 89–128; BP diastolic 47–69; PULSE 62–85; RESP 12–21; TEMP 36.8; O2SAT 92–98; BMI 48.2
--- NOTE | 2024-09-16 03:47 | CTR_ITS ---
PROCEDURE INFORMATION: Exam: CTA Chest With Contrast Exam date and time: 09/16/2024 4:09 AM Age: 53 years old Clinical indication: Left-sided; Prior surgery; Surgery date: 6+ months; Surgery type: Gb; Patient HX: Left lower anterior chest pain TECHNIQUE: Imaging protocol: Computed tomographic angiography of the chest with contrast. Exam focused on the arteries. 3D rendering (Not supervised by radiologist): MIP and/or 3D reconstructed images were created by the technologist. Radiation optimization: All CT scans at this facility use at least one of these dose optimization techniques: automated exposure control; mA and/or kV adjustment per patient size (includes targeted exams where dose is matched to clinical indication); or iterative reconstruction. Contrast material: OMNI 350; Contrast volume: 80 ml; Contrast route: INTRAVENOUS (IV); COMPARISON: CR XR chest 1V [id number] 01/27/2018 7:26 PM RADIATION DOSE METRICS: Total DLP (mGy-cm): 606.84 FINDINGS: Pulmonary arteries: Limited evaluation secondary to pulmonary arterial contrast measuring 221 Hounsfield units. No large pulmonary emboli. Pulmonary arterial enlargement measuring 3.3 cm. No evidence of right heart strain. Aorta: Unremarkable. No aortic aneurysm. No aortic dissection. Lungs: Dependent atelectasis. Mosaic attenuation. Pleural spaces: Unremarkable. No pneumothorax. No pleural effusion. Heart: Unremarkable. No cardiomegaly. No pericardial effusion. Lymph nodes: Unremarkable. No enlarged lymph nodes. Liver: Hepatic steatosis. Hepatomegaly measuring 20 cm. Gallbladder and biliary ducts: Status post cholecystectomy. Possible small remnant gallbladder. Spleen: Splenomegaly measuring 16.2 cm Adrenal glands: Thickening of the left adrenal gland with 1 cm left adrenal nodule. Bones/joints: Diffuse idiopathic skeletal hyperostosis. Soft tissues: Unremarkable. CT/CT angio chest PE protcl [id number] IMPRESSION: 1. No large pulmonary emboli. 2. Pulmonary arterial enlargement which may seen in pulmonary arterial hypertension. 3. Hepatic steatosis. 4. Hepatomegaly and splenomegaly. 5. Status post cholecystectomy with small remnant gallbladder.
--- NOTE | 2024-09-16 03:49 | W.ED.CHESTPA ---
Documented by User: Shakeel Gordon DO 09/16/24 06:15 HPI - Chest Pain General: Chief Complaint: Abdominal Pain Stated Complaint: ABD Time Seen by Provider: 09/16/24 03:38 History of Present Illness: 53-year-old female presenting with focal left lower anterior chest pain that started last night. It is worse with deep breathing. She has not been coughing. No fever. No vomiting or nausea. Pain is sharp. It is somewhat worse with movement. She is having some trouble breathing, as it hurts to take a deep breath. No history of cardiac disease. She does have a history of diabetes. Related Data Home Medications Medication Instructions Recorded Confirmed loratadine 10 mg capsule 10 mg PO DAILY 10/02/20 08/01/24 montelukast 10 mg tablet 10 mg PO DAILY 06/06/22 08/01/24 (Singulair) citalopram 40 mg tablet 40 mg PO DAILY 05/28/23 08/01/24 vitamin with calcium 1 tab PO DAILY 05/28/23 08/01/24 no.72-iron 27 mg-folic acid 1 mg tablet ( Vitamins Plus Low Iron) omeprazole 20 mg capsule,delayed mg PO 09/20/23 08/01/24 release Previous Rx's Medication Instructions Recorded estradiol 0.5 mg tablet See Rx Instructions .Route 06/06/24 .COMPLEX #90 tabs oxybutynin chloride 5 mg See Rx Instructions .Route 06/06/24 tablet,extended release 24 hr .COMPLEX #90 tabs pen needle, diabetic 32 gauge x #100 ea 07/04/24 (Pentips Pen Needle) nitrofurantoin macrocrystal 100 mg 100 mg PO BID 5 days #10 caps 08/01/24 capsule exenatide 10 mcg/dose(250 See Rx Instructions .Route 09/13/24 mcg/mL)2.4 mL subcutaneous pen .COMPLEX #2.4 mL injector (Scards) lisinopril 20 mg tablet 20 mg PO DAILY #30 tabs 09/16/24 Allergies Allergy/AdvReac Type Severity Reaction Status Date / Time shrimp Allergy Intermediate ALGY-Rash Verified 08/01/24 10:26 PFS ED PFSH: Medical History Dental caries URI with cough and congestion Allergic rhinitis Aftercare following surgery of the genitourinary system Status post hysteroscopy 12/29/2021- hysteroscopic D&C with myosure performed by Dr. Rayo at [facility] Aftercare following surgery of the genitourinary system Surgical History Hx of colonoscopy Dr Perez- unknown when done H/O total vaginal hysterectomy 03/16/2022- TVH with BSO performed by Dr. Rayo at [facility] H/O tubal ligation S/P cholecystectomy H/O dilation and curettage Family History Mother Clotting disorder Diabetes Heart disease Father Hypertension Grandmother Breast cancer paternal, age unknown Denies family history of Colon cancer Ovarian cancer Hyperlipidemia Anesthesia complication Bleeding disorder Uterine cancer Thyroid disease Stroke Social History Smoking and tobacco/nicotine status: never used tobacco/nicotine Substance/Drug Use: never Physical Exam Const: GENERAL APPEARANCE: cooperative and in distress (in pain); not frail appearing ORIENTATION/CONSCIOUSNESS: Yes awake, Yes oriented to person, Yes oriented to place and Yes oriented to time HENMT: COMMON NORMALS: normocephalic and atraumatic HEAD & SCALP: normocephalic and atraumatic FACE & SINUS: normal facial exam Eye: COMMON NORMALS: Equal, round and reactive pupils present and EOMs intact bilaterally PUPIL: Yes Equal, round and reactive pupils present Chest: COMMONS NORMALS: normal inspection of the chest CHEST: Yes tenderness (Focal left lower anterior chest wall) Resp: EFFORT & INSPECTION: Yes tachypneic and No uses accessory muscles Cardio: COMMON NORMALS: regular rate and regular rhythm RATE: regular rate RHYTHM: regular rhythm GI: COMMON NORMALS: Soft to palpation and non-tender INSPECTION: No abdominal wall ecchymosis PALPATION: Yes Soft to palpation Neuro: SENSORIUM/ORIENTATION: Yes oriented to person, Yes oriented to place and Yes oriented to time Course Vital Signs: Vital signs: Vital Signs Temperature 98.2 F 09/16/24 03:41 Pulse Rate 67 09/16/24 06:45 Respiratory Rate 16 09/16/24 06:45 Blood Pressure 107/67 09/16/24 06:30 Pulse Oximetry 92 09/16/24 06:45 Oxygen Delivery Me thod Room Air 09/16/24 03:50 MDM - Chest Pain Medical Decision Making 53-year-old female with focal left lower anterior chest pain that is reproducible. No ST wave changes on EKG. CBC is normal. Potassium is 3.3 and is repleted orally. Other laboratory is not remarkable including urinalysis which shows no significant hematuria lactic acid which is 2 and a troponin initially which is less than 6. CT angiogram of the chest is pending at the time of shift change. She will be checked out to the oncoming physician. Lab Data 09/16/24 03:43 09/16/24 03:43 Radiology Impressions Chest CTA 09/16/24 03:47 IMPRESSION: 1. No large pulmonary emboli. 2. Pulmonary arterial enlargement which may seen in pulmonary arterial hypertension. 3. Hepatic steatosis. 4. Hepatomegaly and splenomegaly. 5. Status post cholecystectomy with small remnant gallbladder. Laboratory Results WBC 9.32 10^3/uL (3.29-11.43) 09/16/24 03:43 RBC 4.56 10^6/uL (3.85-5.65) 09/16/24 03:43 Hgb 13.20 g/dL (11.27-16.99) 09/16/24 03:43 Hct 42.0 % (36-47) 09/16/24 03:43 MCV 92.1 fl (85-98) 09/16/24 03:43 MCH 28.9 pg (27-33) 09/16/24 03:43 MCHC 31.4 g/dL (30-55) 09/16/24 03:43 RDW 14.3 % (12.1-15.1) 09/16/24 03:43 Plt Count 153 10^3/cmm (157-399) L 09/16/24 03:43 MPV 10.9 fL (7.4-10.4) H 09/16/24 03:43 Neut % (Auto) 66.3 % 09/16/24 03:43 Lymph % (Auto) 22.5 % 09/16/24 03:43 Jasper % (Auto) 6.7 % 09/16/24 03:43 Eos % (Auto) 3.6 % 09/16/24 03:43 Baso % (Auto) 0.5 % 09/16/24 03:43 Neut # (Auto) 6.17 10^3/uL (1.8-7.7) 09/16/24 03:43 Lymph # (Auto) 2.1 10^3/uL (0.8-4.8) 09/16/24 03:43 Jasper # (Auto) 0.6 10^3/uL (0.2-0.9) 09/16/24 03:43 Eos # (Auto) 0.3 10^3/uL (0.0-0.8) 09/16/24 03:43 Baso # (Auto) 0.1 10^3/uL (0.0-0.1) 09/16/24 03:43 Nucleated RBC % (auto) 0 % 09/16/24 03:43 Nucleated RBCs # 0.0 /100WBC 09/16/24 03:43 Sodium 138 mmol/L (136-145) 09/16/24 03:43 Potassium 3.3 mmol/L (3.5-5.1) L 09/16/24 03:43 Chloride 98 mmol/L (98-107) 09/16/24 03:43 Carbon Dioxide 29 mmol/L (22-29) 09/16/24 03:43 Anion Gap 14.3 (5-19) 09/16/24 03:43 BUN 14 mg/dL (6-20) 09/16/24 03:43 Creatinine 0.8 mg/dL (0.5-0.9) 09/16/24 03:43 GFR Calculation 75.6 mL/min (90-130) L 09/16/24 03:43 Glucose 113 mg/dL (65-115) 09/16/24 03:43 Calculated Osmolality 287 mOsm/kg (285-295) 09/16/24 03:43 Lactic Acid 2.0 mmol/L (0.5-2.2) 09/16/24 03:43 Calcium 9.3 mg/dL (8.5-10.5) 09/16/24 03:43 Total Bilirubin 0.3 mg/dL (0.15-1.2) 09/16/24 03:43 AST 14 U/L (0-32) 09/16/24 03:43 ALT 15 U/L (0-33) 09/16/24 03:43 Alkaline Phosphatase 81 U/L (35-105) 09/16/24 03:43 Troponin T Baseline < 6 ng/L (0-10) 09/16/24 03:43 Troponin T 120 Minute 10.13 ng/L (0-10) H 09/16/24 06:29 Delta Troponin T 4.57708 ABS# (0-10) 09/16/24 06:29 C-Reactive Protein 27.7 mg/L (0.0-4.9) H 09/16/24 03:43 Total Protein 7.3 g/dL (6.6-8.7) 09/16/24 03:43 Albumin 3.8 g/dL (3.5-5.2) 09/16/24 03:43 Globulin 3.5 g/dL (1.3-4.6) 09/16/24 03:43 Lipase 23 U/L (13-60) 09/16/24 03:43 Urine Color Yellow (Yellow) 09/16/24 04:42 Urine Appearance Clear (CLEAR) 09/16/24 04:42 Urine pH 7.0 (5-7) 09/16/24 04:42 Ur Specific [place] 1.032 (1.005-1.030) H 09/16/24 04:42 Urine Protein Negative (Negative) 09/16/24 04:42 Urine Glucose (UA) Negative (Normal) 09/16/24 04:42 Urine Ketones Negative (Negative) 09/16/24 04:42 Urine Blood Negative (Negative) 09/16/24 04:42 Urine Nitrate Negative (Negative) 09/16/24 04:42 Urine Bilirubin Negative (Negative) 09/16/24 04:42 Urine Urobilinogen 1.0 mg/dL (Negative) 09/16/24 04:42 Ur Leukocyte Esterase Negative (Negative) 09/16/24 04:42 Urine RBC 0-2 /hpf (0-2) 09/16/24 04:42 Urine WBC 0-5 /hpf (0-5) 09/16/24 04:42 Ur Squamous Epith Cells 0-5 /hpf (0-5) 09/16/24 04:42 Amorphous Sediment Not Reportable 09/16/24 04:42 Urine Bacteria None seen /hpf (NONE) 09/16/24 04:42 Hyaline Casts 0-4 /lpf H 09/16/24 04:42 Discharge Plan Discharge Patient Disposition: Home Clinical Impression: Musculoskeletal chest pain, HTN (hypertension) Condition: Stable Prescriptions: New lisinopril 20 mg tablet 20 mg PO DAILY Qty: 30 0RF Discontinued lisinopril-hydrochlorothiazide 20-12.5 mg tablet 1 tab PO DAILY No Action loratadine 10 mg capsule 10 mg PO DAILY citalopram 40 mg tablet 40 mg PO DAILY Vitamin Plus Low Iron 27 mg iron- 1 mg tablet 1 tab PO DAILY nitrofurantoin macrocrystal 100 mg capsule 100 mg PO BID 5 Days Qty: 10 0RF Rx Instructions: must administer with a meal/food omeprazole 20 mg capsule,delayed release(DR/EC) PO montelukast [Singulair] 10 mg tablet 10 mg PO DAILY estradiol 0.5 mg tablet See Rx Instructions .ROUTE .COMPLEX Qty: 90 3RF Dose Instruction: TAKE ONE TABLET BY MOUTH EVERY DAY Rx Instructions: TAKE ONE TABLET BY MOUTH EVERY DAY oxybutynin chloride 5 mg tablet extended release 24hr See Rx Instructions .ROUTE .COMPLEX Qty: 90 3RF Dose Instruction: TAKE ONE TABLET BY MOUTH EVERY DAY Rx Instructions: TAKE ONE TABLET BY MOUTH EVERY DAY (DME) pen needle, diabetic [Pentips Pen Needle] 32 gauge x 5/32 needle See Rx Instructions .Route Qty: 100 3RF Rx Instructions: As directed Byetta 10 mcg/dose(250 mcg/mL) 2.4 mL pen injector See Rx Instructions .ROUTE .COMPLEX Qty: 2.4 2RF Dose Instruction: inject 10mcg SUBCUTANEOUSLY TWICE DAILY before breakfast and dinner Rx Instructions: inject 10mcg SUBCUTANEOUSLY TWICE DAILY before breakfast and dinner Discharge Orders: Discharge ED (Routine); Ordered 09/16/24 Ordered By: Alberto Blackwood Referrals: Chavez Truong MD [Primary Care Provider] - Discharge Diet: Usual diet Discharge Activity: Resume usual activity Patient Instructions: Opioid Safety Activity Restrictions/Additional Instructions: Thank you for choosing [facility] for your healthcare needs today. It is very important that you follow up as instructed or that you return to the Emergency Department should you have concerns or if your condition changes or worsens in any way. You are seen this morning for chest discomfort. Your chest pain is reproducible with deep inspiration and palpation on the left lower ribs inferior to the breast. Your EKG did not show any acute changes. Your heart score was 3. This is low and can be managed as an outpatient. Your blood pressure was noted to be slightly lower would recommend that you change from lisinopril hydrochlorothiazide to plain lisinopril 20 mg once a day you are given a new prescription for this. You should follow-up with your primary care doctor within the next 7 to 10 days to reevaluate your blood pressure additionally test case developer will make arrangements for you to have a [facility] Sign Out Sign Out Data: Patient Sign Out occurred on 09/16/24 at 06:37. Patient's care was discussed, and care was transferred from Shakeel Gordon DO to Alberto Blackwood DO. Coding Level of Care Code ED Vest Baster for Chg Fwd Documented by User: Alberto Blackwood DO 09/16/24 07:24 HPI - Chest Pain General: Chief Complaint: Abdominal Pain Stated Complaint: ABD Time Seen by Provider: 09/16/24 03:38 Related Data Home Medications Medication Instructions Recorded Confirmed loratadine 10 mg capsule 10 mg PO DAILY 10/02/20 08/01/24 montelukast 10 mg tablet 10 mg PO DAILY 06/06/22 08/01/24 (Singulair) citalopram 40 mg tablet 40 mg PO DAILY 05/28/23 08/01/24 vitamin with calcium 1 tab PO DAILY 05/28/23 08/01/24 no.72-iron 27 mg-folic acid 1 mg tablet ( Vitamins Plus Low Iron) omeprazole 20 mg capsule,delayed mg PO 09/20/23 08/01/24 release Previous Rx's Medication Instructions Recorded estradiol 0.5 mg tablet See Rx Instructions .Route 06/06/24 .COMPLEX #90 tabs oxybutynin chloride 5 mg See Rx Instructions .Route 06/06/24 tablet,extended release 24 hr .COMPLEX #90 tabs pen needle, diabetic 32 gauge x #100 ea 07/04/24 (Pentips Pen Needle) nitrofurantoin macrocrystal 100 mg 100 mg PO BID 5 days #10 caps 08/01/24 capsule exenatide 10 mcg/dose(250 See Rx Instructions .Route 09/13/24 mcg/mL)2.4 mL subcutaneous pen .COMPLEX #2.4 mL injector (Scards) lisinopril 20 mg tablet 20 mg PO DAILY #30 tabs 09/16/24 Allergies Allergy/AdvReac Type Severity Reaction Status Date / Time shrimp Allergy Intermediate ALGY-Rash Verified 08/01/24 10:26 [facility] ED [facility]: Medical History Dental caries URI with cough and congestion Allergic rhinitis Aftercare following surgery of the genitourinary system Status post hysteroscopy 12/29/2021- hysteroscopic D&C with myosure performed by Dr. Rayo at [facility] Aftercare following surgery of the genitourinary system Surgical History Hx of colonoscopy Dr Perez- unknown when done H/O total vaginal hysterectomy 03/16/2022- TVH with BSO performed by Dr. Rayo at [facility] H/O tubal ligation S/P cholecystectomy H/O dilation and curettage Family History Mother Clotting disorder Diabetes Heart disease Father Hypertension Grandmother Breast cancer paternal, age unknown Denies family history of Colon cancer Ovarian cancer Hyperlipidemia Anesthesia complication Bleeding disorder Uterine cancer Thyroid disease Stroke Social History Smoking and tobacco/nicotine status: never used tobacco/nicotine Substance/Drug Use: never Course Vital Signs: Vital signs: Vital Signs Temperature 98.2 F 09/16/24 03:41 Pulse Rate 67 09/16/24 06:45 Respiratory Rate 16 09/16/24 06:45 Blood Pressure 107/67 09/16/24 06:30 Pulse Oximetry 92 09/16/24 06:45 Oxygen Delivery Me thod Room Air 09/16/24 03:50 MDM - Chest Pain Medical Decision Making 53-year-old female with focal left lower anterior chest pain that is reproducible. No ST wave changes on EKG. CBC is normal. Potassium is 3.3 and is repleted orally. Other laboratory is not remarkable including urinalysis which shows no significant hematuria lactic acid which is 2 and a troponin initially which is less than 6. CT angiogram of the chest is pending at the time of shift change. She will be checked out to the oncoming physician. Care assumed at change of shift. Heart score is 3. Patient has reproducible chest discomfort with inspiration and with palpation on the left lower chest inferior to the left breast laterally. He is not having any pain now. Her initial Trope was 6 her second Trope was a little over 10. Her EKG did not show any acute changes. Patient had not been having symptoms prior to this morning. Will discharge home set her up for an outpatient Lexiscan sestamibi stress test. Blood pressure was slightly low we will have her change from lisinopril hydrochlorothiazide to plain lisinopril. Discussed with Dr. Phelps who is on-call for cardiology he concurred with the plan. Lab Data 09/16/24 03:43 09/16/24 03:43 Radiology Impressions Chest CTA 09/16/24 03:47 IMPRESSION: 1. No large pulmonary emboli. 2. Pulmonary arterial enlargement which may seen in pulmonary arterial hypertension. 3. Hepatic steatosis. 4. Hepatomegaly and splenomegaly. 5. Status post cholecystectomy with small remnant gallbladder. Laboratory Results WBC 9.32 10^3/uL (3.29-11.43) 09/16/24 03:43 RBC 4.56 10^6/uL (3.85-5.65) 09/16/24 03:43 Hgb 13.20 g/dL (11.27-16.99) 09/16/24 03:43 Hct 42.0 % (36-47) 09/16/24 03:43 MCV 92.1 fl (85-98) 09/16/24 03:43 MCH 28.9 pg (27-33) 09/16/24 03:43 MCHC 31.4 g/dL (30-55) 09/16/24 03:43 RDW 14.3 % (12.1-15.1) 09/16/24 03:43 Plt Count 153 10^3/cmm (157-399) L 09/16/24 03:43 MPV 10.9 fL (7.4-10.4) H 09/16/24 03:43 Neut % (Auto) 66.3 % 09/16/24 03:43 Lymph % (Auto) 22.5 % 09/16/24 03:43 Jasper % (Auto) 6.7 % 09/16/24 03:43 Eos % (Auto) 3.6 % 09/16/24 03:43 Baso % (Auto) 0.5 % 09/16/24 03:43 Neut # (Auto) 6.17 10^3/uL (1.8-7.7) 09/16/24 03:43 Lymph # (Auto) 2.1 10^3/uL (0.8-4.8) 09/16/24 03:43 Jasper # (Auto) 0.6 10^3/uL (0.2-0.9) 09/16/24 03:43 Eos # (Auto) 0.3 10^3/uL (0.0-0.8) 09/16/24 03:43 Baso # (Auto) 0.1 10^3/uL (0.0-0.1) 09/16/24 03:43 Nucleated RBC % (auto) 0 % 09/16/24 03:43 Nucleated RBCs # 0.0 /100WBC 09/16/24 03:43 Sodium 138 mmol/L (136-145) 09/16/24 03:43 Potassium 3.3 mmol/L (3.5-5.1) L 09/16/24 03:43 Chloride 98 mmol/L (98-107) 09/16/24 03:43 Carbon Dioxide 29 mmol/L (22-29) 09/16/24 03:43 Anion Gap 14.3 (5-19) 09/16/24 03:43 BUN 14 mg/dL (6-20) 09/16/24 03:43 Creatinine 0.8 mg/dL (0.5-0.9) 09/16/24 03:43 GFR Calculation 75.6 mL/min (90-130) L 09/16/24 03:43 Glucose 113 mg/dL (65-115) 09/16/24 03:43 Calculated Osmolality 287 mOsm/kg (285-295) 09/16/24 03:43 Lactic Acid 2.0 mmol/L (0.5-2.2) 09/16/24 03:43 Calcium 9.3 mg/dL (8.5-10.5) 09/16/24 03:43 Total Bilirubin 0.3 mg/dL (0.15-1.2) 09/16/24 03:43 AST 14 U/L (0-32) 09/16/24 03:43 ALT 15 U/L (0-33) 09/16/24 03:43 Alkaline Phosphatase 81 U/L (35-105) 09/16/24 03:43 Troponin T Baseline < 6 ng/L (0-10) 09/16/24 03:43 Troponin T 120 Minute 10.13 ng/L (0-10) H 09/16/24 06:29 Delta Troponin T 4.21194 ABS# (0-10) 09/16/24 06:29 C-Reactive Protein 27.7 mg/L (0.0-4.9) H 09/16/24 03:43 Total Protein 7.3 g/dL (6.6-8.7) 09/16/24 03:43 Albumin 3.8 g/dL (3.5-5.2) 09/16/24 03:43 Globulin 3.5 g/dL (1.3-4.6) 09/16/24 03:43 Lipase 23 U/L (13-60) 09/16/24 03:43 Urine Color Yellow (Yellow) 09/16/24 04:42 Urine Appearance Clear (CLEAR) 09/16/24 04:42 Urine pH 7.0 (5-7) 09/16/24 04:42 Ur Specific [place] 1.032 (1.005-1.030) H 09/16/24 04:42 Urine Protein Negative (Negative) 09/16/24 04:42 Urine Glucose (UA) Negative (Normal) 09/16/24 04:42 Urine Ketones Negative (Negative) 09/16/24 04:42 Urine Blood Negative (Negative) 09/16/24 04:42 Urine Nitrate Negative (Negative) 09/16/24 04:42 Urine Bilirubin Negative (Negative) 09/16/24 04:42 Urine Urobilinogen 1.0 mg/dL (Negative) 09/16/24 04:42 Ur Leukocyte Esterase Negative (Negative) 09/16/24 04:42 Urine RBC 0-2 /hpf (0-2) 09/16/24 04:42 Urine WBC 0-5 /hpf (0-5) 09/16/24 04:42 Ur Squamous Epith Cells 0-5 /hpf (0-5) 09/16/24 04:42 Amorphous Sediment Not Reportable 09/16/24 04:42 Urine Bacteria None seen /hpf (NONE) 09/16/24 04:42 Hyaline Casts 0-4 /lpf H 09/16/24 04:42 All radiology interpretation(s) finalized by discharge Clincial Decision Support The following clinical decision support tools were used to aid in care of the patient HEART Score -> History: Slightly Suspicous, EKG: Non-specific Changes, Age: 45-64 yrs, Risk Factors: 1 or 2 Risk Factors, Troponin: Baseline Trop <16 ng/L. Resulting HEART Score: 3. Discharge Plan Discharge Patient Disposition: Home Clinical Impression: Musculoskeletal chest pain, HTN (hypertension) Condition: Stable Prescriptions: New lisinopril 20 mg tablet 20 mg PO DAILY Qty: 30 0RF Discontinued lisinopril-hydrochlorothiazide 20-12.5 mg tablet 1 tab PO DAILY No Action loratadine 10 mg capsule 10 mg PO DAILY citalopram 40 mg tablet 40 mg PO DAILY Vitamin Plus Low Iron 27 mg iron- 1 mg tablet 1 tab PO DAILY nitrofurantoin macrocrystal 100 mg capsule 100 mg PO BID 5 Days Qty: 10 0RF Rx Instructions: must administer with a meal/food omeprazole 20 mg capsule,delayed release(DR/EC) PO montelukast [Singulair] 10 mg tablet 10 mg PO DAILY estradiol 0.5 mg tablet See Rx Instructions .ROUTE .COMPLEX Qty: 90 3RF Dose Instruction: TAKE ONE TABLET BY MOUTH EVERY DAY Rx Instructions: TAKE ONE TABLET BY MOUTH EVERY DAY oxybutynin chloride 5 mg tablet extended release 24hr See Rx Instructions .ROUTE .COMPLEX Qty: 90 3RF Dose Instruction: TAKE ONE TABLET BY MOUTH EVERY DAY Rx Instructions: TAKE ONE TABLET BY MOUTH EVERY DAY (DME) pen needle, diabetic [Pentips Pen Needle] 32 gauge x 5/32 needle See Rx Instructions .Route Qty: 100 3RF Rx Instructions: As directed Byetta 10 mcg/dose(250 mcg/mL) 2.4 mL pen injector See Rx Instructions .ROUTE .COMPLEX Qty: 2.4 2RF Dose Instruction: inject 10mcg SUBCUTANEOUSLY TWICE DAILY before breakfast and dinner Rx Instructions: inject 10mcg SUBCUTANEOUSLY TWICE DAILY before breakfast and dinner Discharge Orders: Discharge ED (Routine); Ordered 09/16/24 Ordered By: Alberto Blackwood Referrals: Chavez Truong MD [Primary Care Provider] - Discharge Diet: Usual diet Discharge Activity: Resume usual activity Patient Instructions: Opioid Safety Activity Restrictions/Additional Instructions: [facility]. It is very important that you follow up as instructed or that you return to the Emergency Department should you have concerns or if your condition changes or worsens in any way. You are seen this morning for chest discomfort. Your chest pain is reproducible with deep inspiration and palpation on the left lower ribs inferior to the breast. Your EKG did not show any acute changes. Your heart score was 3. This is low and can be managed as an outpatient. Your blood pressure was noted to be slightly lower would recommend that you change from lisinopril hydrochlorothiazide to plain lisinopril 20 mg once a day you are given a new prescription for this. You should follow-up with your primary care doctor within the next 7 to 10 days to reevaluate your blood pressure additionally test case developer will make arrangements for you to have a [facility] Sign Out Sign Out Data: Patient Sign Out occurred on 09/16/24 at 06:37. Patient's care was discussed, and care was transferred from Shakeel Gordon DO to Alberto Blackwood DO. Coding Level of Care Code ED Vest Baster for Mary Hunter
[2024-09-16 03:53] LABS: Basophils # 0.1 10^3/uL (0.0-0.1); Basophils % 0.5 %; Eosinophils # 0.3 10^3/uL (0.0-0.8); Eosinophils % 3.6 %; Lymphocytes # 2.1 10^3/uL (0.8-4.8); Lymphocytes % 22.5 %; Mean Corpuscular HGB Conc 31.4 g/dL (30-55); Mean Corpuscular Hemoglobin 28.9 pg (27-33); Mean Corpuscular Volume 92.1 fl (85-98); Mean Platelet Volume 10.9 fL (7.4-10.4); Monocytes # 0.6 10^3/uL (0.2-0.9); Monocytes % 6.7 %; Neutrophils # 6.17 10^3/uL (1.8-7.7); Neutrophils % 66.3 %; Nucleated Red Blood Cells % 0 %; Platelet Count 153 10^3/cmm (157-399); Red Blood Count 4.56 10^6/uL (3.85-5.65); Red Cell Distribution Width 14.3 % (12.1-15.1); White Blood Count 9.32 10^3/uL (3.29-11.43)
[2024-09-16 04:20] LABS: Alanine Aminotransferase 15 U/L (0-33); Albumin Level 3.8 g/dL (3.5-5.2); Alkaline Phosphatase 81 U/L (35-105); Anion Gap 14.3 (5-19); Aspartate Amino Transferase 14 U/L (0-32); Blood Urea Nitrogen 14 mg/dL (6-20); C Reactive Protein 27.7 mg/L (0.0-4.9); Calcium 9.3 mg/dL (8.5-10.5); Carbon Dioxide 29 mmol/L (22-29); Chloride 98 mmol/L (98-107); Creatinine Clr Calc Pharmacy 114.0224; Globulin 3.5 g/dL (1.3-4.6); Glomerular Filtration Rate 75.6 mL/min (90-130); Glucose 113 mg/dL (65-115); Lipase 23 U/L (13-60); Osmolality Calculated 287 mOsm/kg (285-295); Potassium 3.3 mmol/L (3.5-5.1); Sodium 138 mmol/L (136-145); Total Bilirubin 0.3 mg/dL (0.15-1.2); Total Protein 7.3 g/dL (6.6-8.7); Troponin(5th) Baseline < 6 ng/L (0-10)
[2024-09-16] MEDS: iohexol 350 mg/mL 500 mL Btl (per mL) IV (04:24)
[2024-09-16] MEDS: ondansetron 2 mg/ML SDV 2 mL 4 MG IVP (04:43)
[2024-09-16] MEDS: ketorolac 30 mg/mL INJ IVP (04:44)
[2024-09-16] MEDS: morphine 4 mg/mL SDV 1 mL IVP ×2 (04:45→05:42)
[2024-09-16 05:02] LABS: Bilirubin Urine Negative (Negative); Blood Urine Negative (Negative); Glucose Urine UA Negative (Normal); Ketones Urine Negative (Negative); Leukocyte Esterase Urine Negative (Negative); Nitrate Urine Negative (Negative); Protein Urine Negative (Negative); Urine Appearance Clear (CLEAR); Urine Color Yellow (Yellow)
[2024-09-16 05:06] LABS: Add Urine Microscopic? YES; Bacteria Urine None Seen /hpf; Hyaline Casts Urine 0-4 /lpf; RBC Urine 0-2 /hpf (0-2); Squamous Epithelial Cell Urine 0-5 /hpf (0-5); WBC Urine 0-5 /hpf (0-5)
[2024-09-16 05:11] LABS: Specific Gravity, Urine 1.032 (1.005-1.030)
[2024-09-16] MEDS: potassium chloride oral liq 20 mEq/15 mL UDC 40 MEQ PO (05:16)
[2024-09-16] MEDS: sodium chloride 0.9% 1,000 ML 999 ML IV (05:43)
[2024-09-16 06:57] LABS: Troponin 5 2HR 10.13 ng/L (0-10); Troponin 5 2HR Delta 4.13001 ABS# (0-10)
--- NOTE | 2024-09-16 09:48 | ECG_ITS ---
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 Measurements Intervals [place] Rate: 72 P: 52 IN: 156 QRS: -12 QRSD: 113 T: 28 QT: 393 QTc: 432 Interpretive Statements SINUS RHYTHM LOW QRS VOLTAGE IN PRECORDIAL LEADS [QRS DEFLECTION < 1.0 mV IN CHEST LEADS] RIGHT BUNDLE BRANCH BLOCK [120+ ms QRS DURATION, UPRIGHT V1, 40+ ms S IN I/aVL/V4/V5/V6] Compared to ECG 06/20/2016 19:43:16 Low QRS voltage now present Right bundle-branch block now present Sinus tachycardia no longer present Incomplete right bundle-branch block no longer present ST (T wave) deviation no longer present Electronically Signed On 09-16-2024 17:17:30 BIT GRINDER by Robel Walker M.D. [email or web address]
--- NOTE | 2024-09-16 16:28 | DCPLANNER ---
faxed lexiscan order to scheduling for er f/u
== END 2024-09-16 07:33 | disposition home or self-care (01) ==
PROVIDERS: Emergency Medicine; Emergency Provider Family Medicine; PCP Family Medicine
DX: R07.89 Other chest pain (principal); I10 Essential (primary) hypertension
CPT/HCPCS: 36415; 71275; 80053; 81001; 83605; 83690; 84484; 85025; 86140; 93005; 96374; 96375; 96376; 99285; J1885; J2270; J2405; J7030

== ENCOUNTER 2024-09-23 08:24 | Outpatient (CLI) | payer MEDICAID, SELFPAY ==
--- NOTE | 2024-09-23 | ECG_ITS ---
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 The perfusion scan will be documented separately. DATA: Baseline heart rate was 74 beats per minute. Baseline blood pressure was 125/66 millimeters of mercury. Target heart rate was 169. Maximum heart rate achieved was 94. which was 55% of the predicted target heart rate. Maximum blood pressure was 125/66 millimeters of mercury. The reason for ending the test was completion of protocol, the patient did not experience any symptoms. ELECTROCARDIOGRAM: BASELINE: Sinus rhythm. Normal axis. Right bundle branch otherwise, no ST-T changes suggestive of ischemia noted. No arrhythmia noted. EXERCISE: After Lexiscan injection, no ST-T changes suggestive of ischemic noted. No arrhythmia noted. CONCLUSION: Please note due to baseline abnormality of the EKG specificity and sensitivity of the EKG portion of LexiScan MIBI stress test will be low 1. EKG not suggestive of ischemia 2. Lexiscan injection unremarkable. 3. Perfusion scan will be documented separately. Electronically Signed On 10-14-2024 21:24:38 [employer]FT [employer]CH[employer] ARMAMENT by TABITHA DEE [email or web address]
[2024-09-23 08:39] VITALS: BMI 64.9
--- NOTE | 2024-09-23 08:48 | NMCV_ITS ---
NM eris perf SPECT r/s* [id number] Yessica Randhawa Age: 53 Gender: F : 1970 Exam Date: 09/23/2024 08:48 Ordering Phys: Alberto Blackwood DO Technologist: JOLENE Ahn Exam Location: [facility] Indications: cp STRESS TEST Please see separate stress [facility] for full findings IMAGE PROTOCOL Rest/Stress 1 Lexiscan Day Radiopharmaceutical Dose (mCi) Administration Site Administered by Rest: Tc-99m 11 IV JOLENE Gallegos Sestamibi Stress:Tc-99m 33 IV JOLENE Gallegos Sestamibi Rest: 23-Sep-2024 60 Discovery 630 Stress: 23-Sep-2024 30 Discovery 630 0.4mg Lexiscan. Supine position only as patient was unable to lay prone. SPECT RESULTS Technical Quality: Good Raw Data Analysis: Soft tissue attenuation, Breast attenuation Image Corrections: No attenuation or motion correction applied Summed Stress Score: 16 Summed Rest Score: 10 Summed Difference Score: 6 PERFUSION FINDINGS Large area of perfusion defect noted in basal to distal inferior wall on the rest images which showed moderate to large area of severe reversibility suggestive of ischemia in the RCA territory. Medium sized area of fixed perfusion defect noted in mid to distal anterior wall suggestive of old myocardial infarction. FUNCTIONAL RESULTS (calculated via Gated SPECT) Stress Image LV EF (%): 72 Stress EDV (mL):117 TID: 0.89 Stress ESV (mL):33 FUNCTIONAL FINDINGS: There appeared to be mid to distal inferior wall severe hypokinesis otherwise anterior lateral and apical cool has no wall motion abnormality IMPRESSIONS Large area of old myocardial infarction surrounded by medium to large area of ischemia noted in the basal to distal inferior wall. Mid to distal anterior wall has old myocardial infarction without jorge-infarct ischemia. EKG segment will be documented separately. Karen Johnson MD (Electronically Signed) Final Date: 23 September 2024 13:49 S
[2024-09-23] MEDS: regadenoson 0.4 Mg/5 ml Syringe IVP (10:29)
[2024-09-23 10:43] VITALS: BP 106/50; PULSE 78
== END 2024-09-23 08:25 | disposition home or self-care (01) ==
PROVIDERS: PCP Family Medicine; Visit Provider Family Medicine
DX: R07.9 Chest pain, unspecified (principal); I25.2 Old myocardial infarction; R93.1 Abnormal findings on diagnostic imaging of heart and coronary circulation
CPT/HCPCS: 36415; 78452; 93017; 96374; A9500; J2785

== ENCOUNTER → 2024-10-07 13:05 | Outpatient (BNVA) | payer MEDICAID, SELFPAY | PROVIDERS: PCP Family Medicine; Visit Provider Podiatrist Foot & Ankle Surgery | DX: L60.3 Nail dystrophy (principal) | CPT/HCPCS: 99203 ==

== ENCOUNTER → 2024-11-01 11:22 | Outpatient (BNVA) | payer MEDICAID, SELFPAY | PROVIDERS: PCP Family Medicine; Visit Provider Internal Medicine | DX: E66.01 Morbid (severe) obesity due to excess calories (principal); K21.9 Gastro-esophageal reflux disease without esophagitis; M25.569 Pain in unspecified knee; R79.89 Other specified abnormal findings of blood chemistry; K59.00 Constipation, unspecified; N39.0 Urinary tract infection, site not specified | CPT/HCPCS: 99214 ==

== ENCOUNTER → 2024-11-27 13:52 | Outpatient (BNVA) | payer MEDICAID, SELFPAY | PROVIDERS: PCP Family Medicine; Visit Provider Internal Medicine | DX: R07.9 Chest pain, unspecified (principal); I45.10 Unspecified right bundle-branch block; E66.01 Morbid (severe) obesity due to excess calories; I10 Essential (primary) hypertension | CPT/HCPCS: 93005; 99204 ==

== ENCOUNTER 2024-11-28 11:36 | Outpatient (CLI) | payer MEDICAID, SELFPAY ==
[2024-11-28 12:40] LABS: Estmated Average Glucose 97
[2024-11-28 12:42] LABS: Chol HDL Ratio 3.67 mg/dL (0.0-4.40); Cholesterol 154 mg/dL (0-200); HDL Cholesterol 42 mg/dL (60-100); LDL Cholesterol Calculated 88 mg/dL (50-129); Triglycerides 118 mg/dL (0-150)
== END 2024-11-28 11:37 | disposition home or self-care (01) ==
LOC: LAB 11:38
PROVIDERS: PCP Family Medicine; Visit Provider Internal Medicine
DX: E11.9 Type 2 diabetes mellitus without complications (principal)
CPT/HCPCS: 36415; 80061; 83036

== ENCOUNTER 2024-12-23 06:02 | Outpatient (CLI) | payer MEDICAID, SELFPAY ==
--- NOTE | 2024-12-23 06:15 | USCV_ITS ---
Yessica Randhawa Age: 54 Gender: F : 1970 Exam Date: 12/23/2024 06:48 Ordering Phys: Augustine Phelps M.D ([email or web address]) Technologist: [place] [facility] [place]: sob cp BP: 140 / 80 HR: 70 Rhythm: Sinus Technical Quality: Adequate MEASUREMENTS (Male / Female) Normal Values 2D ECHO LV Diastolic Diameter PLAX 5.5 cm 4.2 - 5.9 / 3.9 - 5.3 cm IVS Diastolic Thickness 1.2 cm 0.6 - 1.0 / 0.6 - 0.9 cm IVS Systolic Thickness 1.4 cm LVPW Diastolic Thickness 1.3 cm 0.6 - 1.0 / 0.6 - 0.9 cm LVPW Systolic Thickness 1.8 cm LVOT Diameter 2.1 cm LV Ejection Fraction 2D Teich 60.9 % LV Ejection Fraction MOD 4C 59.6 % LV Ejection Fraction MOD 2C 65.4 % LV Ejection Fraction 2C AL 67.3 % LA Diameter 3.6 cm RA Systolic Volume 4C AL 27.5 ml RA Systolic Volume 4C MOD 26.4 ml Aorta at Sinotubular Diameter 3.3 cm IVC Diameter 1.9 cm M-MODE LA Ao Ratio MM 1.4 AV Cusp Separation MM 2.4 cm DOPPLER AV Peak Velocity 172.0 cm/s LVOT Peak Velocity 118.0 cm/s AV Area Cont Eq vti 2.6 cm squared AV Area Cont Eq pk 2.3 cm squared MV Peak Velocity 127.0 cm/s MV Area PHT 3.3 cm squared Mitral E to A Ratio 1.0 TR Peak Velocity 152.0 cm/s TR Peak Gradient 9.2 mmHg TV Peak E Velocity 95.0 cm/s PV Peak Velocity 133.0 cm/s FINDINGS Left Ventricle Left ventricle is normal in size. LV systolic function is normal with EF of 55-60%. No regional wall motion abnormalities are seen. Right Ventricle Normal in size and function Right Atrium Normal in size Left Atrium Normal in size Mitral Valve Mild mitral annular calcification. Mild mitral regurgitation. Aortic Valve Structurally normal aortic valve. No significant stenosis or regurgitation. Tricuspid Valve Mild tricuspid regurgitation. Insufficient TR jet to calculate RVSP Pulmonic Valve Not well visualized Pericardium Normal Aorta Normal in size IVC Appears to be normal CONCLUSIONS LV systolic function is normal with EF of 55-60% Mild mitral regurgitation Mild tricuspid regurgitation No comparison studies are available Augustine Phelps MD (Electronically Signed) Final Date: 31 December 2024 09:15 S
== END 2024-12-23 06:03 | disposition home or self-care (01) ==
PROVIDERS: PCP Family Medicine; Visit Provider Internal Medicine
DX: R07.9 Chest pain, unspecified (principal); R06.02 Shortness of breath; I34.81 Nonrheumatic mitral (valve) annulus calcification; I34.0 Nonrheumatic mitral (valve) insufficiency; I07.1 Rheumatic tricuspid insufficiency
CPT/HCPCS: 93306

== ENCOUNTER 2025-01-27 11:24 | Outpatient (CLI) | payer BC, MEDICAID, SELFPAY ==
--- NOTE | 2025-01-27 | MM_ITS ---
WS: [id number] BILATERAL 3D TOMOSYNTHESIS DIGITAL SCREENING MAMMOGRAPHY WITH CAD CLINICAL INFORMATION: ANNUAL SCREENING HISTORY: Screening mammogram. No current complaints. COMPARISON: 2023 TECHNIQUE: Bilateral CC and MLO views. FINDINGS: Scattered fibroglandular densities bilaterally. No suspicious focal mass, asymmetry, calcifications, or architectural distortion. No evidence of malignancy. MM/MM scr BI tomosynthesis [id number] IMPRESSION: DENSITY: There are scattered areas of fibroglandular density. BI-RADS: 1 - Negative. FOLLOW UP: 1 Year Follow-up Recommend return to annual screening mammography.
[2025-01-27 12:15] LABS: Estmated Average Glucose 108; Hemoglobin A1C 5.4 % (4.0-6.0)
[2025-01-27 12:31] LABS: Chol HDL Ratio 2.91 mg/dL (0.0-4.40); Cholesterol 128 mg/dL (0-200); HDL Cholesterol 44 mg/dL (60-100); LDL Cholesterol Calculated 61 mg/dL (50-129); LDL HDL Ratio 1.39 RATIO (0.00-3.22); Triglycerides 114 mg/dL (0-150)
== END 2025-01-27 11:25 | disposition home or self-care (01) ==
LOC: RAD 11:26
PROVIDERS: Internal Medicine; PCP Family Medicine; Visit Provider Family Medicine
DX: Z12.31 Encounter for screening mammogram for malignant neoplasm of breast (principal); R79.89 Other specified abnormal findings of blood chemistry; E66.01 Morbid (severe) obesity due to excess calories; R92.323 Mammographic fibroglandular density, bilateral breasts
CPT/HCPCS: 36415; 77063; 77067; 80061; 83036; 84305

== ENCOUNTER → 2025-01-29 10:59 | Outpatient (BNVA) | payer MEDICAID, SELFPAY | PROVIDERS: PCP Family Medicine; Visit Provider Internal Medicine | DX: R79.89 Other specified abnormal findings of blood chemistry (principal); E66.01 Morbid (severe) obesity due to excess calories; K21.9 Gastro-esophageal reflux disease without esophagitis | CPT/HCPCS: 99214 ==

== ENCOUNTER → 2025-03-31 13:51 | Outpatient (BNVA) | payer MEDICAID, SELFPAY | PROVIDERS: PCP Family Medicine; Visit Provider Internal Medicine | DX: E66.01 Morbid (severe) obesity due to excess calories (principal); Z68.44 Body mass index [BMI] 60.0-69.9, adult; I10 Essential (primary) hypertension | CPT/HCPCS: 99214 ==

== ENCOUNTER → 2025-04-29 08:58 | Outpatient (BNVA) | payer MEDICAID, SELFPAY | PROVIDERS: PCP Family Medicine; Visit Provider Internal Medicine | DX: E11.65 Type 2 diabetes mellitus with hyperglycemia (principal); K59.00 Constipation, unspecified; E66.01 Morbid (severe) obesity due to excess calories; R79.89 Other specified abnormal findings of blood chemistry | CPT/HCPCS: 99214 ==